=== PATIENT | male | born 1950 | race African-American/Black ===

== ENCOUNTER 2017-08-21 22:37 | Inpatient (IN) | payer MEDICAID ==
[~2017-08-21] VITALS: Ht 167.6 cm; Wt 65.8 kg
[~2017-08-21 22:37] MED LIST: ALBU18HF2 IH; AMLO10TA80 PO; ASPI-1159 PO; BRIM5DRO EACHEYE; FLUT1DIS3 IH; FLUT9.9S NS; IBUP-2028 PO; MONT10TA21 PO; TAMS-11 PO; TERA2CAP4 PO; TIOT18CA3 INH
[2017-08-21] MEDS ORDERED: IPRATROPIUM BROMIDE (0.02%) 0.5MG/2.5ML NEB HHN STA (23:07)
[2017-08-21] MEDS ORDERED: METHYLPREDNISOLONE SOD SUCC 125 MG/2 ML VIAL IV STA (23:07)
[2017-08-21] MEDS ORDERED: ALBUTEROL (0.083%) 2.5MG/3ML NEB HHN STA (23:07)
[2017-08-21 23:39] LABS: BASOPHILS % 1.2 % (0.0-2.0); EOSINOPHILS % 10.2 % (0.0-5.0); HEMATOCRIT. 38.2 % (42.0-52.0); HEMOGLOBIN. 12.7 g/dL (14.0-18.0); LYMPHOCYTES % 35.2 % (20.0-50.0); MEAN CORPUSCULAR HEMOGLOBIN 29.8 pg (28.0-32.0); MEAN CORPUSCULAR VOLUME 89.6 fL (80.0-94.0); MEAN PLATELET VOLUME 6.6 fl (7.4-10.4); MONOCYTES % 9.8 % (2.0-8.0); NEUTROPHILS % 43.6 % (40.0-76.0); PLATELET 310 x1000/uL (130-400); RED BLOOD CELL COUNT 4.26 mill/uL (4.7-6.1); RED CELL DISTRIBUTION WIDTH 14.5 % (11.6-14.6)
[2017-08-21 23:55] LABS: CARBON DIOXIDE 32 mEq/L (21-32); CHLORIDE 103 mEq/L (98-107); TROPONIN I < 0.02 ng/mL (0.00-0.04)
[2017-08-22] MEDS ORDERED: SODIUM CHLORIDE 0.9% 1,000 ML IV SCH (01:46)
[2017-08-22] MEDS ORDERED: MORPHINE SULFATE 2 MG/ML CPJ (NOT FOR IM USE) IV PRN (02:45)
[2017-08-22] MEDS ORDERED: ONDANSETRON HCL 4MG/2ML VIAL IV PRN (02:45)
[2017-08-22] MEDS ORDERED: CLONIDINE 0.1MG TABLET PO PRN (02:45)
[2017-08-22] MEDS ORDERED: ACETAMINOPHEN 325MG TABLET PO PRN (02:45)
[2017-08-22] MEDS ORDERED: DOCUSATE SODIUM 100MG CAPSULE PO PRN (02:45)
[2017-08-22] MEDS ORDERED: IPRATROPIUM/ALBUTEROL 0.5-3(2.5)MG/3ML NEB INH PRN (02:45)
[2017-08-22] MEDS: GUAIFENESIN 200MG/10ML SUGAR FREE UDC PO PRN ×2 (04:17→09:02)
[2017-08-22 06:46] VITALS: BP 128/76
[2017-08-22] MEDS ORDERED: PY25 PO (07:37)
[2017-08-22] MEDS ORDERED: NIFE30TA94 PO (07:37)
[2017-08-22] MEDS ORDERED: CYCL5TAB PO (07:37)
[2017-08-22] MEDS ORDERED: FERR325T6 PO (07:37)
[2017-08-22] MEDS ORDERED: FLUT1DIS6 IH (07:37)
[2017-08-22 08:00] VITALS: BP 143/75
[2017-08-22] MEDS: METHYLPREDNISOLONE SOD SUCC 125 MG/2 ML VIAL IV SCH ×2 (08:30→15:13)
[2017-08-22] MEDS: ENOXAPARIN 40MG/0.4ML SYR SUBCUT SCH (08:31)
[2017-08-22] MEDS: ASPIRIN 81MG EC TABLET PO SCH (08:32)
[2017-08-22] MEDS: AMLODIPINE 10MG TABLET PO SCH (08:32)
[2017-08-22] MEDS: DEXT 5%/0.45% NACL KCL 10MEQ/L 1,000 ML IV SCH (08:34)
[2017-08-22] MEDS ORDERED: LEVOFLOXACIN 500MG PREMIX 100 ML IV NR (09:00)
[2017-08-22] MEDS: IPRATROPIUM/ALBUTEROL 0.5-3(2.5)MG/3ML NEB INH SCH ×2 (09:03→21:06)
[2017-08-22 11:16] VITALS: BP 143/75
[2017-08-22 12:00] VITALS: BP 140/74
[2017-08-22 16:00] VITALS: BP 143/76
[2017-08-22] MEDS ORDERED: MONTELUKAST SODIUM 10MG TABLET PO SCH (17:00)
[2017-08-22 17:51] LABS: CARBON DIOXIDE 29 mEq/L (21-32); CHLORIDE 104 mEq/L (98-107)
[2017-08-22 18:14] LABS: BG BASE EXCESS 1.3 mmol/L (-2.0-2.0); BG CARBOXYHEMOGLOBIN 0.3 % (0.5-1.5); BG DEOXYHEMOGLOBIN 3.2 % (0.0-5.0); BG FRACTION INSPIRED OXYGEN 30; BG HCO3 ACT 25.1 mmol/L (22.0-26.0); BG METHEMOGLOBIN 0.1 % (0.0-1.5); BG OXYGEN SATURATION 96.8 % (92.0-98.5); BG OXYHEMOGLOBIN 96.4 % (94.0-97.0); BG PCO2 36.9 mmHg (35.0-45.0); BG PO2 94.4 mmHg (75.0-100.0); BG SAMPLE SITE RIGHT BRACHIAL; BG TOTAL HEMOGLOBIN 12.2 g/dL (12.0-18.0); BG VENT MODE NASAL CANNULA
[2017-08-22] MEDS: METHYLPREDNISOLONE SOD SUCC 40 MG/ML VIAL IV SCH (18:48)
[2017-08-22 20:12] VITALS: BP 128/77
[2017-08-22] MEDS ORDERED: FAMOTIDINE 20MG/2ML VIAL IV SCH (21:00)
[2017-08-22] MEDS: BUDESONIDE 0.5MG/2ML NEB HHN SCH (21:06)
[2017-08-22] MEDS: HYDROCODONE/ACETAMINOPHEN 5/325MG TABLET PO PRN (21:42)
[2017-08-23] MEDS: IPRATROPIUM/ALBUTEROL 0.5-3(2.5)MG/3ML NEB INH SCH ×3 (00:45→09:10)
[2017-08-23 01:12] VITALS: BP 139/72
[2017-08-23] MEDS: METHYLPREDNISOLONE SOD SUCC 40 MG/ML VIAL IV SCH ×2 (01:34→08:16)
[2017-08-23 04:56] VITALS: BP 134/70
[2017-08-23] MEDS: DEXT 5%/0.45% NACL KCL 10MEQ/L 1,000 ML IV SCH ×2 (06:21→10:40)
[2017-08-23 07:00] LABS: HEMATOCRIT. 35.6 % (42.0-52.0); HEMOGLOBIN. 11.9 g/dL (14.0-18.0); MEAN CORPUSCULAR HEMOGLOBIN 30.1 pg (28.0-32.0); MEAN CORPUSCULAR VOLUME 89.9 fL (80.0-94.0); MEAN PLATELET VOLUME 7.1 fl (7.4-10.4); PLATELET 320 x1000/uL (130-400); RED BLOOD CELL COUNT 3.96 mill/uL (4.7-6.1); RED CELL DISTRIBUTION WIDTH 14.3 % (11.6-14.6)
[2017-08-23 07:14] LABS: CHLORIDE 103 mEq/L (98-107)
[2017-08-23 07:44] LABS: CARBON DIOXIDE 28 mEq/L (21-32)
[2017-08-23 07:58] VITALS: BP 142/72
[2017-08-23] MEDS: ASPIRIN 81MG EC TABLET PO SCH (08:16)
[2017-08-23] MEDS: ENOXAPARIN 40MG/0.4ML SYR SUBCUT SCH (08:16)
[2017-08-23] MEDS: AMLODIPINE 10MG TABLET PO SCH (08:17)
[2017-08-23] MEDS: HYDROCODONE/ACETAMINOPHEN 5/325MG TABLET PO PRN (08:21)
[2017-08-23] MEDS ORDERED: LEVOFLOXACIN 250MG PREMIX 50 ML IV SCH (09:00)
[2017-08-23] MEDS ORDERED: LORATADINE 10MG TABLET PO SCH (09:00)
[2017-08-23] MEDS ORDERED: PNEUMOCOCCAL 23-VAL P-SAC VAC 0.5 ML IM ONE (09:00)
[2017-08-23] MEDS: BUDESONIDE 0.5MG/2ML NEB HHN SCH (09:05)
[2017-08-23 09:10] LABS: BG BASE EXCESS 2.6 mmol/L (-2.0-2.0); BG CARBOXYHEMOGLOBIN 0.3 % (0.5-1.5); BG DEOXYHEMOGLOBIN 7.4 % (0.0-5.0); BG FRACTION INSPIRED OXYGEN 28; BG HCO3 ACT 27.5 mmol/L (22.0-26.0); BG OXYGEN SATURATION 92.6 % (92.0-98.5); BG OXYHEMOGLOBIN 92.3 % (94.0-97.0); BG PCO2 43.6 mmHg (35.0-45.0); BG PH 7.418 (7.350-7.450); BG PO2 71.2 mmHg (75.0-100.0); BG SAMPLE SITE RIGHT BRACHIAL; BG TOTAL HEMOGLOBIN 13.3 g/dL (12.0-18.0); BG VENT MODE NASAL CANNULA
[2017-08-23 12:00] VITALS: BP 135/70
[2017-08-23 12:20] VITALS: BP 135/70
[2017-08-23 20:53] LABS: PLATELET ESTIMATE NORMAL
== END 2017-08-23 14:00 | disposition home or self-care (01) | DRG 133 ==
LOC: ER 22:43 → 6WST 08-22 01:48 → EDBEDREQTM 08-22 02:12 → EDBEDREQ 08-22 02:12 → EDBEDREQDT 08-22 02:12 → SUPCPDRO 08-22 02:38 → ENRESERV 08-22 05:00
PROVIDERS: ADMIT Hospitalist; ATTEND Hospitalist
DX: J96.00 Acute respiratory failure, unspecified whether with hypoxia or hypercapnia (principal); N17.9 Acute kidney failure, unspecified; J44.1 Chronic obstructive pulmonary disease with (acute) exacerbation; E87.5 Hyperkalemia; J45.901 Unspecified asthma with (acute) exacerbation; D64.9 Anemia, unspecified; I10 Essential (primary) hypertension; Z60.2 Problems related to living alone; E87.6 Hypokalemia; Z79.82 Long term (current) use of aspirin; Z79.899 Other long term (current) drug therapy
CPT/HCPCS: 36415; 36600; 71010; 71250; 80048; 80053; 82375; 82805; 83605; 83880; 84484; 85025; 87040; 90732; 93005; 93970; 94640; 96374; 96375; 99285; J1650; J1956; J2270; J2920; J2930; J3490; J7030; J7611; J7620; J7626

== ENCOUNTER 2019-01-01 01:14 | Emergency (ER) | payer MEDICARE, MEDICAID ==
[~2019-01-01] VITALS: Ht 177.8 cm; Wt 77.2 kg
[~2019-01-01 01:14] MED LIST changes: +CYCL5TAB PO; +FERR325T6 PO; +FLUT1DIS6 IH; +NIFE30TA94 PO; +PY25 PO
[2019-01-01] MEDS ORDERED: ALBUTEROL (0.083%) 2.5MG/3ML NEB HHN STA (02:06)
[2019-01-01] MEDS ORDERED: IPRATROPIUM BROMIDE (0.02%) 0.5MG/2.5ML NEB HHN STA (02:06)
[2019-01-01] MEDS ORDERED: PREDNISONE 20MG TABLET PO STA (02:06)
[2019-01-01 04:15] VITALS: BP 140/64
== END 2019-01-01 04:57 | disposition home or self-care (01) ==
LOC: ER 01:14
DX: J45.909 Unspecified asthma, uncomplicated (principal); J44.9 Chronic obstructive pulmonary disease, unspecified; I10 Essential (primary) hypertension; Z79.899 Other long term (current) drug therapy
CPT/HCPCS: 71045; 94640; 99283; J7512; J7611

== ENCOUNTER 2019-05-30 18:07 | Emergency (ER) | payer MEDICARE, MEDICAID ==
[~2019-05-30] VITALS: Ht 172.7 cm; Wt 82.0 kg
[~2019-05-30 18:07] MED LIST changes: -ASPI-1159 PO; +ASPI-1393 PO
[2019-05-30] MEDS ORDERED: METHYLPREDNISOLONE SOD SUCC 125 MG/2 ML VIAL IV STA (18:11)
[2019-05-30] MEDS ORDERED: SODIUM CHLORIDE 0.9% 1,000 ML IV ONE (18:11)
[2019-05-30] MEDS ORDERED: MAGNESIUM 2 G PREMIX 50 ML IV STA (18:11)
[2019-05-30] MEDS ORDERED: ALBUTEROL (0.083%) 2.5MG/3ML NEB HHN STA (18:11)
[2019-05-30] MEDS ORDERED: IPRATROPIUM BROMIDE (0.02%) 0.5MG/2.5ML NEB HHN STA (18:11)
[2019-05-30] MEDS ORDERED: TRAMADOL 50MG TABLET PO ONE (19:30)
[2019-05-30 19:39] LABS: HEMATOCRIT. 37.1 % (42.0-52.0); HEMOGLOBIN. 12.4 g/dL (14.0-18.0); MEAN CORPUSCULAR HEMOGLOBIN 30.7 pg (28.0-32.0); MEAN PLATELET VOLUME 7.4 fl (7.4-10.4); PLATELET 226 x1000/uL (130-400); RED BLOOD CELL COUNT 4.04 mill/uL (4.7-6.1)
[2019-05-30 19:46] LABS: CHLORIDE 105 mEq/L (98-107)
[2019-05-30 19:50] LABS: ETHANOL BLOOD < 10 mg/dL
[2019-05-30] MEDS ORDERED: POTASSIUM CHLORIDE 20MEQ TABLET SR PO ONE (20:15)
[2019-05-30 20:38] LABS: PLATELET ESTIMATE NORMAL
[2019-05-30 21:25] VITALS: BP 135/70
== END 2019-05-30 21:28 | disposition home or self-care (01) ==
LOC: ER 18:07
DX: J44.1 Chronic obstructive pulmonary disease with (acute) exacerbation (principal); G89.29 Other chronic pain; M54.5 Low back pain; N28.9 Disorder of kidney and ureter, unspecified; I10 Essential (primary) hypertension; Z79.899 Other long term (current) drug therapy
CPT/HCPCS: 36415; 71045; 80053; 80320; 83880; 84484; 85025; 93005; 94644; 96365; 96375; 99285; J2930; J3475; J7030; J7611; G0480